=== PATIENT | female | born 1995 | race Caucasian/White ===

== ENCOUNTER 2023-04-08 17:36 | Outpatient (REF) | payer BC, SELFPAY ==
[2023-04-08 22:01] LABS: Abs Immature Grans 0.01 10^3/uL (0.0-0.06); Absolute Basophil Count 0.04 10^3/uL (0.0-0.2); Absolute Eosinophil Count 0.16 10^3/uL (0.0-0.7); Absolute Lymphocyte Count 1.85 10^3/uL (1.2-3.4); Absolute Monocyte Count 0.45 10^3/uL (0.1-0.8); Absolute Neutrophil Count 3.31 10^3/uL (1.2-6.7); Basophils % 0.7; Eosinophils % 2.7; HCT 38.8 % (36.0-46.0); HGB 13.2 g/dL (11.2-15.7); Immature Grans % 0.2; Lymphocytes % 31.8; MCH 31.4 pg (27.0-33.0); MCV 92 fL (80-95); MPV 11.3 fL (8.0-11.0); Monocytes % 7.7; Neutrophils % 56.9; Platelet Count 275 10^3/uL (130-400); RDW 12.2 % (11.7-14.6); RDW-SD 41.9 fL; WBC 5.82 10^3/uL (4.4-10.8)
[2023-04-08 22:15] LABS: ALT 34 U/L (14-59); AST 29 U/L (15-37); Alkaline Phosphatase 59 U/L (46-116); Anion Gap 8.7 mmol/L (3-11); BUN 4 mg/dL (7-18); Bilirubin, Total 0.3 mg/dL (0.2-1.0); CO2 26.3 mmol/L (21.0-32.0); CREATININE 0.6 mg/dL (0.55-1.02); Chloride 103 mmol/L (98-107); Estimated GFR 126.09 (mL/min/1.73m2); Glucose 102 mg/dL (74-106); Lipase 45 U/L (16-77); Potassium 3.9 mmol/L (3.5-5.1); Sodium 138 mmol/L (136-145); Total Protein 7.4 g/dL (6.4-8.2)
[2023-04-08 23:00] LABS: C Diff PCR Negative (Negative)
[2023-04-08 23:09] LABS: HCG Quant, Pregnancy 1 mIU/mL (1-3)
[2023-04-10 20:30] LABS: Adenovirus F40/41 Negative (Negative); Astrovirus Negative (Negative); C. difficile toxin Negative (Negative); Cyclospora cayetanensis Negative (Negative); Entamoeba histolytica Negative (Negative); Enteroaggregative E.coli(EAEC) Negative (Negative); Enteropathogenic E.coli (EPEC) Negative (Negative); Enterotoxigenic E.coli (ETEC) Negative (Negative); Norovirus GI/GII Negative (Negative); Plesiomonas shigelloides Negative (Negative); Salmonella species Negative (Negative); Sapovirus Negative (Negative); Shiga toxin producing E.coli Negative (Negative); Shigella/Enteroinvasive E.coli Negative (Negative); Specimen Source STOOL; Vibrio cholerae Negative (Negative); Yersinia species Negative (Negative)
[2023-04-11 11:46] LABS: Cryptosporidium species Positive (Negative)
== END 2023-04-08 17:37 | disposition home or self-care (01) ==
LOC: NCHCN 17:36
PROVIDERS: Visit Provider Physician Assistant
DX: R10.10 Upper abdominal pain, unspecified (principal); R11.0 Nausea; R19.7 Diarrhea, unspecified
CPT/HCPCS: 80053; 83690; 87329; 87493; 87505; 87507; 84702; 85025; 87177

== ENCOUNTER 2024-10-05 09:48 | Outpatient (REF) | payer OTHER, SELFPAY ==
--- NOTE | 2024-10-05 09:00 | SKI_PTH ---
PATIENT: Betty Darnell [facility]: [facility] U#:[id number] AGE/SX: 29/F ROOM: RE10/05/[address]: Yani Cox : 1995 BED: DIS: 10/05/2024 SPEC #: [id number] RECD: 10/05/24 17:28 STATUS: LISET REQ #: [id number] GLENYS: 10/05/24 09:[address]: Yani Cox DEPT: Surgical Specimen RECD BY: Syeda Dumont ENTERED: 10/05/24 17:28 SP TYPE: ABDOULAYE HICKEY DR: Unknown,Unknown Tissues: 1 - SKIN BIOPSY(SHAVE/PUNCH) Procedures: SKIN LEVEL 4 Comments: [id number]
== END 2024-10-05 09:49 | disposition home or self-care (01) ==
LOC: NCHCN 09:48
PROVIDERS: Visit Provider Family Medicine
DX: D22.5 Melanocytic nevi of trunk (principal)
CPT/HCPCS: 88305

== ENCOUNTER 2025-02-27 15:17 | Outpatient (REF) | payer OTHER, SELFPAY ==
[2025-02-27 15:25] LABS: Abs Immature Grans 0.03 10^3/uL (0.0-0.06); HCT 40.3 % (36.0-46.0); HGB 13.3 g/dL (11.2-15.7); Immature Grans % 0.4 %; MCH 30.9 pg (27.0-33.0); MCHC 33.0 % (32.0-36.0); MCV 94 fL (80-95); MPV 11.2 fL (8.0-11.0); Platelet Count 325 10^3/uL (130-400); RBC 4.31 10^6/uL (3.93-5.22); RDW 12.6 % (11.7-14.6); RDW-SD 43.8 fL; WBC 7.99 10^3/uL (4.4-10.8)
[2025-02-27 15:43] LABS: TSH (W/Ref FT4) 1.45 uIU/mL (0.55-4.78)
== END 2025-02-27 15:18 | disposition home or self-care (01) ==
LOC: NCHCN 15:17
PROVIDERS: PCP Family Medicine; Visit Provider Family Medicine
DX: N92.4 Excessive bleeding in the premenopausal period (principal)
CPT/HCPCS: 84443; 85025